=== PATIENT | female | born 1950 | race Caucasian/White ===

== ENCOUNTER 2016-09-10 10:30 | Day surgery (SDC) | payer OTHER ==
[2016-09-07 08:45] VITALS: BMI 28.9
[~2016-09-10 10:30] MED LIST: DEXAMETHASONE SOD PHOSPHATE 10 MG/ML 1 ML VIAL IV ONE; HYDROmorphone 1 MG/ML 1 ML SYRINGE IVP PRN; LACTATED RINGERS 1,000 ML IV SCH; LIDOCAINE 1% 20 ML VIAL (10MG/ML) FOR IV START INTRADERMA PRN; MIDAZOLAM 2 MG/2 ML VIAL IV PRN; ONDANSETRON 4 MG/2 ML VIAL IVP ONE; Pre Op ABX Message 1 EACH MISC MISCELLANE ONE; SCOPOLAMINE 1.5MG/72HR PATCH TRANSDERM ONE
[2016-09-10 11:10] VITALS: RESP 16; TEMP 98.2
[2016-09-10] MEDS ORDERED: LIDOCAINE 1% INJ 10MG/ML (20 ML MDV) ONE (12:40)
[2016-09-10] MEDS ORDERED: PROPOFOL 10 MG/ML 20 ML VIAL IV ONE (12:40)
[2016-09-10] MEDS ORDERED: fentaNYL (PF) 50 MCG/ML 2 ML AMP ONE (12:40)
[2016-09-10] MEDS ORDERED: MIDAZOLAM 2 MG/2 ML VIAL ONE (12:40)
[2016-09-10] MEDS ORDERED: BUPIVACAINE (PF) 0.5% 30 ML VIAL MISCELLANE ONE (12:54)
[2016-09-10] MEDS ORDERED: LIDOCAINE 2% (PF) 20 MG/ML 10ML SQ ONE (12:54)
[2016-09-10] MEDS ORDERED: ONDANSETRON 4 MG/2 ML VIAL IVP ONE (13:43)
[2016-09-10 14:00] VITALS: BP 155/87; PULSE 73
--- NOTE | 2016-09-18 23:00 | OP ---
DATE OF SERVICE: 09/10/2016 SURGEON: SHELBY MARIE DO [employer] INST[employer]ER: PREOPERATIVE DIAGNOSIS: Mass, dorsal interphalangeal joint, right thumb. POSTOPERATIVE DIAGNOSIS: Mass, dorsal interphalangeal joint, right thumb. OPERATION: Arthrotomy, interphalangeal joint, right thumb, with excision of mass and joint debridement. ANESTHESIA: ESTIMATED BLOOD LOSS: SPECIMENS REMOVED: COMPLICATIONS: GROSS PATHOLOGY: The mass was a ganglion cyst measuring 2 cm in diameter arising from the joint, which required joint debridement along with the mass excision. PROCEDURE: This 66-year-old woman was taken to the operative suite, given IV sedation. Her right thumb was anesthetized with a digital block using a combination of Xylocaine and Marcaine, both without epinephrine. The hand was prepped and draped in the usual manner. A Hilary drain was used as a proximal tourniquet for the right thumb. An H-shaped incision was made over the dorsal IP joint. Skin flaps were dissected and a ganglion cyst was sharply dissected off the extensor mechanism. An arthrotomy was made into the IP joint on both ulnar and radial aspects of the tendon insertion for debridement of the origin of the cyst. The tendon remained intact throughout the procedure. When the dissection was complete, the collection of tissue was sent to the lab for analysis. The wound was irrigated. Tourniquet was released. Hemostasis was satisfactory. Wound was closed with 5-0 nylon suture. Soft bulky dressing was applied and patient was taken to the recovery room in satisfactory condition.
== END 2016-09-10 14:46 | disposition home or self-care (01) ==
LOC: OR 10:30
PROVIDERS: ATTEND Orthopaedic Surgery Hand Surgery
DX: M67.441 Ganglion, right hand (principal); Z79.82 Long term (current) use of aspirin; Z88.5 Allergy status to narcotic agent; Z88.8 Allergy status to other drugs, medicaments and biological substances; F17.200 Nicotine dependence, unspecified, uncomplicated
CPT/HCPCS: 88304; 26160; J2250; J1100; J2001 ×2; J2405; J3010; J2704